=== PATIENT | female | born 1995 | race Caucasian/White ===

== ENCOUNTER 2017-10-30 20:42 | Emergency (ER) | payer MEDICAID ==
[~2017-10-30] VITALS: Ht 160 cm; Wt 53.0 kg
[2017-10-31 01:50] VITALS: BP 110/72
== END 2017-10-31 02:28 | disposition home or self-care (01) ==
LOC: ER 21:02
DX: R07.9 Chest pain, unspecified (principal); R06.02 Shortness of breath; R25.2 Cramp and spasm
CPT/HCPCS: 71045; 81025; 93005; 99284; Z7610